=== PATIENT | female | born 1985 | race Caucasian/White ===

== ENCOUNTER 2019-06-09 18:44 | Inpatient (IN) | payer MEDICAID ==
[~2019-06-09] VITALS: Ht 165.1 cm; Wt 66.2 kg
[2019-06-09] MEDS ORDERED: DEXT 5%/LR + PITOCIN 20UNITS/L 1,000 ML IV SCH ×2 (20:40→23:14)
[2019-06-09] MEDS ORDERED: LIDOCAINE HCL 1% 20ML VIAL (Pyxis) INJ INFIL SCH (20:45)
[2019-06-09] MEDS ORDERED: BUTORPHANOL TARTRATE 2 MG/ML VIAL IV PRN (20:45)
[2019-06-09] MEDS ORDERED: RHO(D) IMMUNE GLOBULIN 300 MCG/SYR IM ONE (20:45)
[2019-06-09] MEDS ORDERED: NALOXONE HCL 0.4 MG/ML 1ML VIAL IM PRN (20:45)
[2019-06-09] MEDS ORDERED: MINERAL OIL 30ML BOTTLE PR ONE (20:45)
[2019-06-09] MEDS ORDERED: METHYLERGONOVINE MALEATE 0.2 MG/ML IM PRN ×2 (20:45→23:15)
[2019-06-09] MEDS ORDERED: PENICILLIN G POTASSIUM 5 MMU in DEXT 5% WATER 100 ML IV SCH (21:00)
[2019-06-09 21:09] LABS: BASOPHILS % 0.6 % (0.0-2.0); EOSINOPHILS % 0.4 % (0.0-5.0); HEMATOCRIT. 30.4 % (36.0-48.0); HEMOGLOBIN. 10.3 g/dL (12.0-16.0); LYMPHOCYTES % 19.2 % (20.0-50.0); MEAN CORPUSCULAR HEMOGLOBIN 29.7 pg (28.0-32.0); MEAN CORPUSCULAR VOLUME 87.4 fL (81.0-99.0); MEAN PLATELET VOLUME 8.7 fl (7.4-10.4); MONOCYTES % 7.4 % (2.0-8.0); NEUTROPHILS % 72.4 % (40.0-76.0); PLATELET 152 x1000/uL (130-400); RED BLOOD CELL COUNT 3.48 mill/uL (4.2-5.4); RED CELL DISTRIBUTION WIDTH 12.7 % (11.6-14.6)
[2019-06-09] MEDS: DEXT 5%/LACTATED RINGERS 1,000 ML IV SCH ×2 (21:14→23:39)
[2019-06-09 21:16] LABS: INR 0.9; PARTIAL THROMBOPLASTIN TIME 23.8 sec (23.4-31.0); PROTHROMBIN TIME 9.5 sec (9.6-11.0)
[2019-06-09] MEDS ORDERED: ROPIVACAINE HCL/PF EPIDURAL 200 ML EPI ONE ×2 (21:35→21:45)
[2019-06-09 21:50] LABS: HEPATITIS B SURFACE ANTIGEN NEGATIVE
[2019-06-09] MEDS ORDERED: IBUPROFEN 400MG TABLET PO PRN (23:15)
[2019-06-09] MEDS ORDERED: LANOLIN OINT 7GM TUBE TOP PRN (23:15)
[2019-06-09] MEDS ORDERED: RHO(D) IMMUNE GLOBULIN 300 MCG/SYR IM PRN (23:15)
[2019-06-09] MEDS ORDERED: IBUPROFEN 800MG TABLET PO PRN (23:15)
[2019-06-10] VITALS (8 sets, daily range): BP systolic 106–119; BP diastolic 61–69
[2019-06-10] MEDS ORDERED: PENICILLIN G POTASSIUM 2.5 MMU in DEXTROSE 5% WATER 50 ML IV SCH (01:00)
[2019-06-10 07:24] LABS: BASOPHILS % 0.2 % (0.0-2.0); EOSINOPHILS % 0.1 % (0.0-5.0); HEMATOCRIT. 31.1 % (36.0-48.0); HEMOGLOBIN. 10.4 g/dL (12.0-16.0); LYMPHOCYTES % 8.8 % (20.0-50.0); MEAN CORPUSCULAR HEMOGLOBIN 29.2 pg (28.0-32.0); MEAN CORPUSCULAR VOLUME 87.2 fL (81.0-99.0); MEAN PLATELET VOLUME 8.6 fl (7.4-10.4); MONOCYTES % 6.8 % (2.0-8.0); NEUTROPHILS % 84.1 % (40.0-76.0); PLATELET 135 x1000/uL (130-400); RED BLOOD CELL COUNT 3.56 mill/uL (4.2-5.4); RED CELL DISTRIBUTION WIDTH 12.9 % (11.6-14.6)
[2019-06-10] MEDS ORDERED: INFLUENZA VIRUS VACCINE(AFLURIA) 0.5ML SYR IM ONE (08:00)
[2019-06-10] MEDS ORDERED: PRENATAL VIT/FE FUMARATE/FA TABLET PO SCH (09:00)
[2019-06-11 04:00] VITALS: BP 130/74
[2019-06-11] MEDS ORDERED: MULT1TAB67 MT (05:32)
[2019-06-11] MEDS ORDERED: IBUP-2029 MT (05:32)
[2019-06-11] MEDS ORDERED: FERR325T6 MT (05:32)
[2019-06-11 08:00] VITALS: BP 122/69
== END 2019-06-11 10:30 | disposition home or self-care (01) | DRG 560 ==
LOC: 8 EST LDRP 18:44 → OBSVTOIN 18:44 → 8EST 06-10 00:47
PROVIDERS: ADMIT Obstetrics & Gynecology; ATTEND Obstetrics & Gynecology
PROC: 10E0XZZ Delivery of Products of Conception, External Approach (ICD-10-PCS; principal; 2019-06-09)
PROC: 00HU33Z Insertion of Infusion Device into Spinal Canal, Percutaneous Approach (ICD-10-PCS; 2019-06-09)
PROC: 3E0R3BZ Introduction of Anesthetic Agent into Spinal Canal, Percutaneous Approach (ICD-10-PCS; 2019-06-09)
DX: O42.913 Preterm premature rupture of membranes, unspecified as to length of time between rupture and onset of labor, third trimester (principal); O60.14X0 Preterm labor third trimester with preterm delivery third trimester, not applicable or unspecified; O69.81X0 Labor and delivery complicated by cord around neck, without compression, not applicable or unspecified; O99.02 Anemia complicating childbirth; D62 Acute posthemorrhagic anemia; Z37.0 Single live birth; Z3A.35 35 weeks gestation of pregnancy
CPT/HCPCS: 36415; 86592; 86703; 86762; 86850; 86900; 87340; 88307; 90686; 99281; G0378; J2540; J2590; J2795; J3490; J7060; A4315